=== PATIENT | female | born 1950 | race Caucasian/White ===

== ENCOUNTER 2016-06-02 10:18 | Emergency (ER) | payer OTHER, MEDICARE ==
[~2016-06-02] VITALS: Ht 160 cm; Wt 106.6 kg
[~2016-06-02 10:18] MED LIST: BUSPIRONE HCL10 M1 PO; BUSPIRONE HCL7.5 M1 PO; CARVEDILOL25 M1 PO; CLARITHROMYCIN500 M1 PO; LOSARTAN POTAS100 M1 PO; MONTELUKAST SOD10 M1 PO; NAPROSYN500 M1 PO; ORPHENADRINE C100 MG PO; PROAIR HFA8.5 GM INH; PROTONIX40 M3 PO; ROBITUSSIN COU118 M1 PO; SERTRALINE HCL50 MG PO; SIMVASTATIN20 M2 PO; TRIAMTERENE-HC1 EAC3 PO; VITAMIN D1000 UNIT PO; ZYRTEC10 M3 PO
[2016-06-02] MEDS ORDERED: ASPIRIN81 M4 PO (11:13)
[2016-06-02] MEDS ORDERED: AMOXICILLIN500 M2 PO (11:14)
[2016-06-02] MEDS ORDERED: ACETAMINOPHEN-1 EAC3 PO (11:14)
--- NOTE | 2016-06-02 11:19 | ED NECK/BACK PAIN COMPLAINT ---
History of Present Illness General Chief Complaint: Low Back Pain/Injury Stated Complaint: LOWER BACK PAIN RAIDIATING INTO NECK Source: patient, family, old records Exam Limitations: no limitations Vital Signs & Intake/Output Vital Signs & Intake/Output Vital Signs Date Time Temp Pulse Resp B/P Pulse O2 O2 Flow FiO2 Ox Delivery Rate 06/02 1147 98.2 74 18 134/61 95 Room Air 06/02 1030 96.7 88 20 118/66 98 Room Air ED Intake and Output 06/03 0000 06/02 1200 Intake Total Output Total Balance Patient 235 lb Weight Allergies Coded Allergies: Sulfa (Sulfonamide Antibiotics) (HIVES 02/27/16) Reconcile Medications Acetaminophen With Codeine (Acetaminophen-Cod #3 Tablet) 300 MG-30 MG TABLET 1 TAB PO BIDP PRN PAIN (Reported) Amoxicillin 500 MG CAPSULE 1 CAP PO BID ANTIBIOTIC, INFECTION (Reported) Aspirin (Aspirin*) 81 MG TAB.CHEW 1 TAB PO DAILY HEART HEALTH (Reported) Buspirone HCl 10 MG TABLET 1 TAB PO QPM MENTAL HEALTH (Reported) Buspirone HCl 7.5 MG TABLET 1 TAB PO DAILY MENTAL HEALTH (Reported) Carvedilol 25 MG TABLET 1 TAB PO BID HEART (Reported) Cholecalciferol (Vitamin D3) (Vitamin D) 1,000 UNIT TABLET 1 TAB PO DAILY SUPPLEMENT (Reported) Hydrocodone/Acetaminophen (Vicodin 5-300 MG Tablet) 5 MG-300 MG TABLET 1 TAB PO Q6 PRN pain Losartan Potassium 100 MG TABLET 1 TAB PO DAILY HEART (Reported) Methylprednisolone. (Medrol) 4 MG TAB.DS.PK 1 DP PO AD INFLAMMATION Montelukast Sodium 10 MG TABLET 1 TAB PO DAILY ALLERGIES (Reported) Pantoprazole Sodium (Protonix) 40 MG TABLET.DR 1 TAB PO DAILY GI (Reported) Sertraline HCl 50 MG TABLET 1 TAB PO DAILY MENTAL HEALTH (Reported) Simvastatin (Simvastatin*) 20 MG TABLET 1 TAB PO QPM CHOLESTEROL (Reported) Triamterene/Hydrochlorothiazid (Triamterene-Hctz 37.5-25 MG Cp) 1 EACH CAPSULE 1 CAP PO DAILY HEART (Reported) Triage Note: PT TO ED C/O LOWER BACK PAIN RADITING TO NECK AND SHOULDERS. STATES SHE HAS A DISK HERNIATION. PAST 3-4 DAYS PAIN HAS BEEN WORSENING, TODAY IS THE WORST. HAS BEEN TAKING TYLENOL #3 WITH NO RELIEF. SEE'S HER ORTHOPEDIST ON 06/11/16. Triage Nurses Notes Reviewed? yes HPI: Patient is a 65-year-old female presents complaining of low back pain radiating to her neck and head pressure. Symptoms have been for approximately 3-4 weeks. Patient has had outpatient cervical spine x-ray, carotid Dopplers, and MRI of her lumbar spine. Patient's MRI of her lumbar spine was in November 2014, shows left foraminal disc extrusion at L4-L5 with severe narrowing of the medial most left neural foramen. Patient's cervical spine x-ray shows advanced degenerative changes to the mid and lower cervical spine. Carotid Dopplers showed no evidence for hemodynamically significant stenosis. Patient reports the pain as a shooting pain from her back to her neck and a pressure pain diffusely in her head. Patient has been taking Tylenol with Codeine with minimal improvement. Patient has an appointment with a neurologist on June 11. Numbness in her right index finger for several weeks. Patient denies recent trauma (SAMIR RADFORD) Past History Travel History Traveled to [place] past 21 day No Medical History Any Pertinent Medical History? see below for history Cardiovascular: hypertension, hyperlipidemia Respiratory: bronchitis, SEASONAL ALLERGIES Gastrointestinal: GERD Musculoskeletal: chronic back pain Psychiatric: anxiety Surgical History Surgical History: non-contributory Psychosocial History What is your primary language [place] Tobacco Use: Quit >30 days ago ETOH Use: denies use Illicit Drug Use: denies illicit drug use Family History Hx Contributory? No (SAMIR RADFORD) Review of Systems Review of Systems Constitutional: Reports: no symptoms. Eyes: Reports: no symptoms. Ears, Nose, Throat, Mouth: Reports: no symptoms. Respiratory: Reports: no symptoms. Cardiovascular: Reports: no symptoms. Gastrointestinal/Abdominal: Reports: no symptoms. Musculoskeletal: Reports: see HPI. Skin: Reports: no symptoms. Neurological/Psychological: Reports: see HPI. (SAMIR RADFORD) Physical Exam Physical Exam General Appearance: well developed/nourished, alert, awake Head: atraumatic, normal appearance Eyes: Bilateral: normal appearance, PERRL, EOMI. Ears, Nose, Throat, Mouth: hearing grossly normal, moist mucous membrane Neck: normal inspection, supple, full range of motion, no midline tenderness Respiratory: normal breath sounds, no respiratory distress, lungs clear Cardiovascular: regular rate/rhythm Peripheral Pulses: 2+ dorsalis pedis (R), 2+ dorsalis pedis (L) Gastrointestinal: soft, non-tender, no palpable masses Back: normal inspection, normal range of motion, no vertebral tenderness, no paraspinal tenderness Straight Leg Raising: Right: Negative. Left: Negative. DTR: Patellar: 2: L4 Right, L4 Left. Achilles: 2: S1 Right, S1 Left. Neurologic/Psych: awake, alert, oriented x 3 Skin: intact, normal color, warm/dry (SAMIR RADFORD) Progress Differential Diagnosis: C spine injury, cauda equina syn, herniated disc, myofascial strain, sciatica, T/L spine injury, ureterolithiasis Plan of Care: no red flags on exam. Patient's previous imaging reviewed including cervical spine x-ray from 05/15/2016, carotid Dopplers from 05/15/2016 and lumbar MRI from 12/15/2014. Further imaging deferred secondary to exam. Appears stable for discharge and follow-up. Discussed with Dr. Rod. (ASMIR RADFORD) Plan of Care: no red flags on exam. Patient's previous imaging reviewed including cervical spine x-ray from 05/15/2016, carotid Dopplers from 05/15/2016 and lumbar MRI from 12/15/2014. Further imaging deferred secondary to exam. Appears stable for discharge and follow-up. Discussed with Dr. Rod. Departure Departure Time of Disposition: 1137 Disposition: HOME OR SELF CARE Condition: Stable Clinical Impression Primary Impression: Cervical arthritis Secondary Impressions: Acute exacerbation of chronic low back pain Referrals: ESTHER ARTHUR,MOISE HARDY MD,JOHNNIE SUAREZ MD,SAMIR FABIAN MD,BLANCO (PCP/Family) Additional Instructions: Follow-up with Dr. Osei on June 11 as previously scheduled. You may also follow-up with one of the neurosurgeons listed in your discharge paperwork for further evaluation. Return to the emergency department if worsening of symptoms. Departure Forms: Customer Survey General Discharge Information Prescriptions: Current Visit Scripts Methylprednisolone. (Medrol) 1 DP PO AD #1 DP Hydrocodone/Acetaminophen (Vicodin 5-300 MG Tablet) 1 TAB PO Q6 PRN pain #10 TAB (SAMIR RADFORD) PA/[employer] Co-Sign Statement Statement: ED Attending supervision documentation- [X] I saw and evaluated the patient. I have also reviewed all the pertinent lab results and diagnostic results. I agree with the findings and the plan of care as documented in the PA's/[employer]'s documentation. [X] I have reviewed the ED Record and agree with the PA's/[employer]'s documentation. [] Additions or exceptions (if any) to the PAs/[employer]'s note and plan are summarized below: [] (TRISH ARTHUR,RONNIE)
[2016-06-02] MEDS ORDERED: VICODIN 5-3001 EACH PO (11:40)
[2016-06-02] MEDS ORDERED: MEDROL4 M2 PO (11:40)
[2016-06-02 11:47] VITALS: BP 134/61
== END 2016-06-02 12:09 ==
LOC: ERH 10:18
DX: M47.812 Spondylosis without myelopathy or radiculopathy, cervical region (principal); G89.29 Other chronic pain; M54.5 Low back pain